=== PATIENT | male | born 1995 | race Hispanic/Latino ===

== ENCOUNTER 2019-06-25 11:08 | Emergency (ER) | payer SELFPAY ==
[~2019-06-25] VITALS: Ht 185.4 cm; Wt 70.3 kg
--- NOTE | 2019-06-25 11:59 | Diagnostic Imaging Report ---
EXAMINATION: HAND 3+ VIEWS RIGHT INDICATION: Trauma COMPARISON: None FINDINGS: Minimally displaced fracture of the head of the second metacarpal. Associated overlying soft tissue swelling. No other fracture or dislocation. IMPRESSION: Minimally displaced head of second metacarpal fracture. Signed by: Meryl Restrepo MD on 06/25/2019 11:55 AM
[2019-06-25] MEDS ORDERED: ULTRAM50 MG PO (13:01)
== END 2019-06-25 13:38 | disposition home or self-care (01) ==
LOC: ER 11:08
DX: S62.330A Displaced fracture of neck of second metacarpal bone, right hand, initial encounter for closed fracture (principal); Y93.75 Activity, martial arts; Y92.39 Other specified sports and athletic area as the place of occurrence of the external cause
CPT/HCPCS: 99283

== ENCOUNTER 2019-12-28 19:32 | Emergency (ER) | payer SELFPAY ==
[~2019-12-28] VITALS: Ht 185.4 cm; Wt 70.3 kg
[~2019-12-28 19:32] MED LIST: ULTRAM50 MG PO
--- OUTSIDE RECORDS SUMMARY | 2019-12-28 19:35 | XMS REPORT ---
Author Author [facility] t Organization [facility] Address [address] [place] [address] Phone Unavailable Care Team Providers Care Team Cdl Driver Name Role Phone NO, PCP PCP Unavailable Eduar AGUILERA Attphys Unavailable Payers Payer Name Policy Type Policy Number Effective Date Expiration Date S ource Problems This patient has no known problems. Allergies, Adverse Reactions, Alerts This patient has no known allergies or adverse reactions. Medications Ordered Medication Name Filled Medication Name Start Date Stop Da te Current Medication? Ordering Clinician Indication Dosage Frequency Signature (SIG) Comments Components Source Tramadol Hcl (Ultram) 50 Mg Tablet Tramadol Hcl (Ultram) 50 Mg Tablet 2019-06-25 00:00:00 Yes Bryn Badillo Authorization Rep 50 Every 6 Hours as needed for Mild Pain (1-3) Or Fever>100.8 [facility] Procedures This patient has no known procedures. Encounters Start Date/Time End Date/Time Encounter Type Admission Type Attendi [facility] [place] Care Department Encounter ID Source 2019-06-25 11:08:00 2019-06-25 13:38:00 Departed Emergency Room 1 DANIELA AGUILERA [facility] [id number] [facility] Results Test Description Test Time Test Comments Results Result Comments Source HAND 3+ VIEWS RIGHT 2019-06-25 11:54:00 [facility] [address] [place] [id number] Patient Name: DARIA BADILLO MR #: [id number] : 1995 Age/Sex: 24/M Req #: [id number] [facility] Physician: Ordered by: BRYN BADILLO NP Report #: [id number] Location: Room/Bed: Procedure: [id number] DX/HAND 3+ VIEWS RIGHT Exam Date: 06/25/19 Exam Time: 1140 REPORT STATUS: Signed EXAMINATION: HAND 3+ VIEWS RIGHT INDICATION: Trauma COMPARISON: None FINDINGS: Minimally displaced fracture of the head of the second metacarpal. Associated overlying soft tissue swelling. No other fracture or dislocation. IMPRESSION: Minimally displaced head of second metacarpal fracture. Signed by: Wolf Smith MD on 06/25/2019 11:55 AM Dictated By: WOLF SMITH MD 1150 Transcribed By: FELIPA on 06/25/19 1158 COPY TO: BRYN BADILLO NP
--- NOTE | 2019-12-28 20:29 | Diagnostic Imaging Report ---
EXAM: CT Abdomen and Pelvis WITHOUT contrast INDICATION: ^LEFT GROIN PAIN ^20191228 ^2004 ^Y COMPARISON: None. TECHNIQUE: Abdomen and pelvis were scanned utilizing a multidetector helical scanner from the lung base to the pubic symphysis without administration of IV contrast. Absence of intravenous contrast decreases sensitivity for detection of focal lesions and vascular pathology. Coronal and sagittal reformations were obtained. Routine protocol was performed. IV CONTRAST: None ORAL CONTRAST: None COMPLICATIONS: None RADIATION DOSE: Total DLP: 653 mGy*cm Estimated effective dose: (DLP x 0.015 x size factor) mSv CTDIvol has been reviewed. It is below the limits set by the Radiation Protocol Committee (RPC). Dose modulation, iterative reconstruction, and/or weight based adjustment of the mA/kV was utilized to reduce the radiation dose to as low as reasonably achievable. FINDINGS: LINES and TUBES: None. LOWER THORAX: Unremarkable HEPATOBILIARY: No focal hepatic lesions. No biliary ductal dilation. GALLBLADDER: Contracted. SPLEEN: No splenomegaly. PANCREAS: No focal masses or ductal dilatation. ADRENALS: No adrenal nodules KIDNEYS/URETERS: No hydronephrosis. No cystic or solid mass lesions. No stones. GI TRACT: No abnormal distention, wall thickening, or evidence of bowel obstruction. Appendix is normal. PELVIC ORGANS/BLADDER: Unremarkable. LYMPH NODES: Mildly enlarged left external iliac chain pelvic lymph node measures up to 1.2 cm in short axis (image 76). Prominent rounded 9 mm left inguinal lymph node. VESSELS: Unremarkable. PERITONEUM / RETROPERITONEUM: No free air or fluid. BONES: Unremarkable. SOFT TISSUES: Ill-defined fat stranding within the left inguinal region measures 2.1 x 5 cm (image 85). No discrete drainable fluid collection within the sensitivity limits of this examination. No skin thickening. IMPRESSION: 1. Nonspecific inflammatory change within the left inguinal region. Differential considerations include infectious phlegmon and hematoma. No drainable fluid collection within the sensitivity limits of this examination. 2. Mild left inguinal and left pelvic lymphadenopathy, likely reactive. Signed by: Alexis Cardozo MD on 12/28/2019 8:26 PM
[2019-12-28 20:30] LABS: BILIRUBIN,URINE NEGATIVE (NEGATIVE); CLARITY,URINE CLEAR (CLEAR); COLOR,URINE YELLOW (YELLOW); KETONES,URINE NEGATIVE (NEGATIVE); LEUKOCYTE ESTERASE ,URINE NEGATIVE (NEGATIVE); NITRITE,URINE NEGATIVE (NEGATIVE); PROTEIN,URINE DIPSTICK NEGATIVE (NEGATIVE); URINE UROBILINOGEN 0.2 mg/dL (0.2 - 1)
--- NOTE | 2019-12-28 20:37 | Emergency Department Note ---
History of Present Illnes History of Present Illness Chief Complaint: Abdominal Complaints History of Present Illness This is a 24 year old male presents with knot to left groin that started 8 days ago when got kicked in same area while sparring at his [employer] workout. denies fever, n/v/d . Historian: Patient Arrival Mode: Car Onset (how long ago): day(s) (8) Location: left groin Quality: swollen and painful Severity: mild Onset quality: gradual Duration (how long): day(s) (8) Timing of current episode: constant Progression: improving Chronicity: new Relieving factors: none Exacerbating factors: none Associated symptoms: denies other symptoms Treatments prior to arrival: none Past Medical/Family History Physician Review I have reviewed the patient's past medical and family history. Any updates have been documented here. Past Medical History Recent Fever: No Clinical Suspicion of Infectio: No New/Unexplained Change in Ment: No Past Medical History: None Past Surgical History: None Social History Smoking Cessation: Never Smoker Counseling Performed: No Alcohol Use: None Any Illegal Drug Use: No TB Exposure/Symptoms: No Physically hurt or threatened: No Other Last Tetanus: unk Any Pre-Existing Lines (PICC,: No Is patient up to date on immun: No Last Flu: HAS NOT HAD Last Pneumovax: HAS NOT HAD Review of Systems Review of Systems Constitutional: no symptoms EENTM: no symptoms Cardiovascular: no symptoms Respiratory: no symptoms Gastrointestinal: no symptoms Genitourinary: no symptoms Musculoskeletal: as per HPI Neurological: no symptoms Psychological: no symptoms Endocrine: no symptoms Hematological/Lymphatic: no symptoms Review of other systems All other systems reviewed and negative. Physical Exam Related Data Allergies: Coded Allergies: No Known Allergies (Unverified , 07/06/15) Triage Vital Signs Vital Signs Date Time Temp Pulse Resp B/P (MAP) Pulse Ox O2 Delivery O2 Flow Rate FiO2 12/28/19 19:39 99.8 94 20 159/118 97 Vital signs reviewed: Yes Physical Exam CONSTITUTIONAL Constitutional: well-developed, well-nourished HENT HENT: normocephalic, atraumatic, oropharynx clear/moist, nose normal HENT L/R: left ext ear normal, right ext ear normal EYES Eyes: PERRL, conjunctivae normal NECK Neck: ROM normal PULMONARY Pulmonary: effort normal, breath sounds normal CARDIOVASCULAR Cardiovascular: regular rhythm, heart sounds normal, capillary refill normal, normal rate GASTROINTESTINAL Abdominal: soft, nontender, bowel sounds normal GENITOURINARY Genitourinary: exam deferred SKIN Skin: warm, dry MUSCULOSKELETAL Musculoskeletal: ROM normal, swelling (pt with a 1x1cm knot to left groin, mildly tender, no erythema) NEUROLOGICAL Neurological: alert, oriented x 3, no gross motor or sensory deficits PSYCHOLOGICAL Psychological: mood/affect normal, judgement normal Results Laboratory Laboratory Laboratory Tests Test 12/28/19 20:02 Urine Color Yellow (YELLOW) Urine Clarity Clear (CLEAR) Urine pH 5 (5 - 7) Urine Specific Eads 1.030 (1.010-1.025) Urine Protein Negative (NEGATIVE) Urine Glucose (UA) Negative (NEGATIVE) Urine Ketones Negative (NEGATIVE) Urine Blood Negative (NEGATIVE) Urine Nitrite Negative (NEGATIVE) Urine Bilirubin Negative (NEGATIVE) Urine Urobilinogen 0.2 mg/dL (0.2 - 1) Urine Leukocyte Esterase Negative (NEGATIVE) Lab results reviewed: Yes Imaging Imaging results reviewed: Yes Impressions EXAM: CT Abdomen and Pelvis WITHOUT contrast INDICATION: ^LEFT GROIN PAIN ^[id number] ^2004 ^Y COMPARISON: None. TECHNIQUE: Abdomen and pelvis were scanned utilizing a multidetector helical scanner from the lung base to the pubic symphysis without administration of IV contrast. Absence of intravenous contrast decreases sensitivity for detection of focal lesions and vascular pathology. Coronal and sagittal reformations were obtained. Routine protocol was performed. IV CONTRAST: None ORAL CONTRAST: None COMPLICATIONS: None RADIATION DOSE: Total DLP: 653 mGy*cm Estimated effective dose: (DLP x 0.015 x size factor) mSv CTDIvol has been reviewed. It is below the limits set by the Radiation Protocol Committee (RPC). Dose modulation, iterative reconstruction, and/or weight based adjustment of the mA/kV was utilized to reduce the radiation dose to as low as reasonably achievable. FINDINGS: LINES and TUBES: None. LOWER THORAX: Unremarkable HEPATOBILIARY: No focal hepatic lesions. No biliary ductal dilation. GALLBLADDER: Contracted. SPLEEN: No splenomegaly. PANCREAS: No focal masses or ductal dilatation. ADRENALS: No adrenal nodules KIDNEYS/URETERS: No hydronephrosis. No cystic or solid mass lesions. No stones. GI TRACT: No abnormal distention, wall thickening, or evidence of bowel obstruction. Appendix is normal. PELVIC ORGANS/BLADDER: Unremarkable. LYMPH NODES: Mildly enlarged left external iliac chain pelvic lymph node measures up to 1.2 cm in short axis (image 76). Prominent rounded 9 mm left inguinal lymph node. VESSELS: Unremarkable. PERITONEUM / RETROPERITONEUM: No free air or fluid. BONES: Unremarkable. SOFT TISSUES: Ill-defined fat stranding within the left inguinal region measures 2.1 x 5 cm (image 85). No discrete drainable fluid collection within the sensitivity limits of this examination. No skin thickening. IMPRESSION: 1. Nonspecific inflammatory change within the left inguinal region. Differential considerations include infectious phlegmon and hematoma. No drainable fluid collection within the sensitivity limits of this examination. 2. Mild left inguinal and left pelvic lymphadenopathy, likely reactive. Signed by: Annmarie Guidry MD on 12/28/2019 8:26 PM Dictated By: ANNMARIE GUIDRY MD 25 Transcribed By: FELIPA on 12/28/192025 COPY TO: HERNESTO VAZQUEZ MD~ Critical Care Time Subsequent provider I assumed direction of critical care for this patient from another provider of my specialty. Assessment & Plan Assessment & Plan Problems: (1) Hematoma of left thigh Assessment & Plan pt with tender nodule left groin that started after being kicked in same spot while sparring at [facility]. ct abd/pelvis ordered to eval for hernia, lymphadenopathy, abscess Last Vital Signs Date Time Temp Pulse Resp B/P (MAP) Pulse Ox O2 Delivery O2 Flow Rate FiO2 12/28/19 19:39 99.8 94 20 159/118 97 Home Meds Active Scripts Tramadol Hcl (ULTRAM) 50 Mg Tablet, 50 MG PO Q6H PRN for Mild Pain (1-3) or Fever>100.8, #15 TAB Prov:ELKIN BADILLO NP 06/25/19 HERNESTO VAZQUEZ MD December 28, 2019 20:37
[2019-12-28 20:40] LABS: BACTERIA,URINE RARE /HPF; EPITHELIAL CELLS,URINE RARE /LPF; RBC,URINE 0-5 /HPF (0-5); WBC,URINE (MAN) 0-5 /HPF (0-5)
[2019-12-28 20:41] LABS: MUCUS,URINE FEW (RARE)
== END 2019-12-28 20:56 | disposition home or self-care (01) ==
LOC: ER 19:32
DX: S70.12XA Contusion of left thigh, initial encounter (principal); W50.1XXA Accidental kick by another person, initial encounter; Y93.59 Activity, other involving other sports and athletics played individually; Y92.39 Other specified sports and athletic area as the place of occurrence of the external cause
CPT/HCPCS: 74176; 81001; 99283